=== PATIENT | male | born 1945 | race Caucasian/White ===

== ENCOUNTER 2018-05-07 22:51 | Emergency (ER) | payer SELFPAY ==
[~2018-05-07] VITALS: Ht 177.8 cm; Wt 65.8 kg
[2018-05-07] MEDS ORDERED: LACTATED RINGERS 1,000 ML IV ONE (22:57)
[2018-05-07] MEDS ORDERED: IBUPROFEN 800 MG (MOTRIN) TAB PO ONE (23:00)
[2018-05-07] MEDS ORDERED: ACETAMINOPHEN 500 MG TAB (TYLENOL) PO PRN (23:00)
[2018-05-07 23:13] LABS: BASOPHILS % (AUTO) 0 % (0-10); EOSINOPHILS % (AUTO) 1 % (0-10); HEMATOCRIT 40 % (40-54); HEMOGLOBIN 13.7 G/DL (13.3-17.7); LYMPHOCYTES # (AUTO) 0.5 X 10^3 (1.0-4.0); LYMPHOCYTES % (AUTO) 8 % (12-44); MEAN CORPUSCULAR HEMOGLOBIN 30 PG (25-34); MEAN CORPUSCULAR HGB CONC 34 G/DL (32-36); MEAN CORPUSCULAR VOLUME 86 FL (80-99); MEAN PLATELET VOLUME 9.7 FL (7.4-10.4); MONOCYTES # (AUTO) 0.4 X 10^3 (0.0-1.0); MONOCYTES % (AUTO) 6 % (0-12); NEUTROPHILS # (AUTO) 5.4 X 10^3 (1.8-7.8); NEUTROPHILS % (AUTO) 86 % (42-75); PLATELET COUNT 185 10^3/uL (130-400); RED CELL DISTRIBUTION WIDTH 13.1 % (10.0-14.5); WHITE BLOOD COUNT 6.3 10^3/uL (4.3-11.0)
[2018-05-07 23:22] LABS: INR 1.2 (0.8-1.4); PROTHROMBIN TIME PATIENT 15.4 SEC (12.2-14.7)
--- NOTE | 2018-05-07 23:23 | ED General ---
General Stated Complaint: FEVER,CONFUSION Exam Limitations: Language Barrier, Other (PT DOES NOT SPEAK GU[place]. 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 SON ARRIVES LATER. 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 DENIES ANY URINARY DIFFICULTIES ( LATER REPORTS THAT HE HAS BEEN VOIDING VERY SMALL AMOUNTS FREQUENTLY SINCE AT LEAST FEBRUARY--IS NOT KNOWN IF HE HAS HAD GROSS HEMATURIA AT ANY TIME) PT HAS HAD NAUSEA AND SOME DRY HEAVES, BUT NO ACTUAL VOMITING--EMS GAVE ZOFRAN 4 MG PRIOR TO ARRIVAL PT HAS NOT C/O ABDOMINAL PAIN NO COUGH OR DIFFICULTY BREATHING--PER FAMILY, BUT PT NOTED TO HAVE OCCASIONAL LOOSE COUGH ON EXAM. HAS BEEN EATING AND DRINKING A LITTLE. PT HAS HAD INCREASED WEAKNESS TODAY PT IS DIABETIC --ACCUCHECK 236 BY EMS. PT HAS HAD AK IN FEBRUARY--NO TREATMENT, HIS BRAIN CANCER WAS DX AFTER HIS AK. [facility] Allergies and Home Medications Allergies Coded Allergies: No Allergy Information Available (Unverified , 05/07/18) Patient Home Medication List Home Medication List Reviewed: Yes Review of Systems Review of Systems Constitutional: fever, malaise, weakness, other (PT IS NOT TALKING. ) Respiratory: No cough, No short of breath Gastrointestinal: see HPI, nausea; No vomiting Genitourinary: see HPI Psychiatric/Neurological: See HPI Past Wmhkmog-[id number]-Svvmjf Hx Patient Social History Alcohol Use: Occasionally Uses (3-4 BEERS A FEW TIMES A WEEK, NONE SINCE 2017) Recreational Drug Use: No Smoking Status: Former Smoker (UNKNOWN AMOUNT--QUIT AGE 27) Type Used: Cigarettes Recent Foreign Travel: No Contact w/Someone Who Travel: No Past Medical History Surgeries: No Respiratory: No Cardiac: Yes (AK 02/2018--NO INTERVENTION, HE WAS DX WITH BRAIN CANCER AFTER HIS AK) Coronary Artery Disease, Heart Attack, High Cholesterol, Hypertension Neurological: Yes Brain Tumor, Headaches /Migraines Genitourinary: No Gastrointestinal: No Musculoskeletal: No Endocrine: Yes Diabetes, Insulin dep HEENT: No Cancer: Yes Brain Did You Recieve Any Treatments: No Psychosocial: No Integumentary: No Blood Disorders: No Physical Exam Vital Signs Vital Signs - First Documented 05/07/18 05/08/18 22:53 00:30 Temp 103.6 Pulse 88 Resp 19 B/P (MAP) 152/74 (100) Pulse Ox 90 O2 Delivery Nasal Cannula O2 Flow Rate 2.00 Capillary Refill : Height, Weight, BMI Height: '" Weight: lbs. oz. kg; BMI Method: General Appearance: No Apparent Distress, Other (LETHARGIC, NOT TALKING OR FOLLOWING COMMANDS; PT IS MORE ALERT WHEN FAMILY IN ROOM, AND DOES COMMUNICATE WITH THEM WITH NODDING OR SHAKING HEAD. PT REQUIRES FULL ASSIST ) Neck: Full Range of Motion Respiratory: No Accessory Muscle Use, No Respiratory Distress, Other ( OCCASIONAL LOOSE COUGH. COARSE BREATH SOUNDS RLL) Cardiovascular: Regular Rate, Rhythm, No Edema, No Murmur, Normal Peripheral Pulses Gastrointestinal: No Pulsatile Mass, Soft, Other (ABDOMEN FIRM/ DISTENDED BLADDER WITH TENDERNESS. BLADDER APPEARS TO BE ABOVE LEVEL OF UMBILICUS ) Back: No CVA Tenderness Neurologic/Psychiatric: Other (LETHARGIC, NOT TALKING OR FOLLOWING COMMANDS) Skin: Warm/Dry Focused Exam Lactate Level 05/07/18 23:00: Lactic Acid Level 1.90 Lactic Acid Level Progress/Results/Core Measures Suspected Sepsis SIRS Temperature: Pulse: Respiratory Rate: Laboratory Tests 05/07/18 23:00: White Blood Count 6.3 Blood Pressure / Mean: 05/07/18 23:00: Lactic Acid Level 1.90 Laboratory Tests 05/07/18 23:00: Creatinine 1.54H, INR Comment 1.2, Platelet Count 185, Total Bilirubin 0.6 Results/Orders Lab Results Laboratory Tests Test 05/07/18 23:00 05/08/18 00:20 Range/Units White Blood Count 6.3 4.3-11.0 10^3/uL Red Blood Count 4.64 4.35-5.85 10^6/uL Hemoglobin 13.7 13.3-17.7 G/DL Hematocrit 40 40-54 % Mean Corpuscular Volume 86 80-99 FL Mean Corpuscular Hemoglobin 30 25-34 PG Mean Corpuscular Hemoglobin Concent 34 32-36 G/DL Red Cell Distribution Width 13.1 10.0-14.5 % Platelet Count 185 130-400 10^3/uL Mean Platelet Volume 9.7 7.4-10.4 FL Neutrophils (%) (Auto) 86 H 42-75 % Lymphocytes (%) (Auto) 8 L 12-44 % Monocytes (%) (Auto) 6 0-12 % Eosinophils (%) (Auto) 1 0-10 % Basophils (%) (Auto) 0 0-10 % Neutrophils # (Auto) 5.4 1.8-7.8 X 10^3 Lymphocytes # (Auto) 0.5 L 1.0-4.0 X 10^3 Monocytes # (Auto) 0.4 0.0-1.0 X 10^3 Eosinophils # (Auto) 0.0 0.0-0.3 10^3/uL Basophils # (Auto) 0.0 0.0-0.1 10^3/uL Neutrophils % (Manual) 77 % Lymphocytes % (Manual) 11 % Monocytes % (Manual) 4 % Eosinophils % (Manual) 0 % Basophils % (Manual) 0 % Band Neutrophils 6 % Reactive Lymphocytes 2 % Blood Morphology Comment NORMAL Prothrombin Time 15.4 H 12.2-14.7 SEC INR Comment 1.2 0.8-1.4 Activated Partial Thromboplast Time 36 H 24-35 SEC Sodium Level 135 135-145 MMOL/L Potassium Level 3.6 3.6-5.0 MMOL/L Chloride Level 97 L 98-107 MMOL/L Carbon Dioxide Level 27 21-32 MMOL/L Anion Gap 11 5-14 MMOL/L Blood Urea Nitrogen 30 H 7-18 MG/DL Creatinine 1.54 H 0.60-1.30 MG/DL Estimat Glomerular Filtration Rate 45 BUN/Creatinine Ratio 19 Glucose Level 181 H 70-105 MG/DL Lactic Acid Level 1.90 0.50-2.00 MMOL/L Calcium Level 8.9 8.5-10.1 MG/DL Corrected Calcium 9.4 8.5-10.1 MG/DL Magnesium Level 1.4 L 1.8-2.4 MG/DL Total Bilirubin 0.6 0.1-1.0 MG/DL Aspartate Amino Transf (AST/SGOT) 209 H 5-34 U/L Alanine Aminotransferase (ALT/SGPT) 139 H 0-55 U/L Alkaline Phosphatase 139 H 40-136 U/L Total Protein 6.4 6.4-8.2 GM/DL Albumin 3.4 3.2-4.5 GM/DL Amylase Level 195 H 25-125 U/L Lipase 58 8-78 U/L Urine Color RED H Urine Clarity VERY CLOUDY H Urine pH 7 5-9 Urine Specific [place] 1.005 L 1.016-1.022 Urine Protein 3+ H NEGATIVE Urine Glucose (UA) 3+ H NEGATIVE Urine Ketones 1+ H NEGATIVE Urine Nitrite POSITIVE H NEGATIVE Urine Bilirubin NEGATIVE NEGATIVE Urine Urobilinogen 1 NORMAL MG/DL Urine Leukocyte Esterase 2+ H NEGATIVE Urine RBC (Auto) 5+ H NEGATIVE Urine RBC TNTC H /HPF Urine WBC RARE /HPF Urine Squamous Epithelial Cells RARE /HPF Urine Crystals NONE /LPF Urine Bacteria TRACE /HPF Urine Casts NONE /LPF Urine Mucus NEGATIVE /LPF Urine Culture Indicated CULTURE PENDING Micro Results Microbiology 05/07/18 Influenza Types A,B Antigen (ELVIRA) - Final, Complete My Orders Orders - LUIZ CASTANEDA DO Cbc With Automated Diff (05/07/18 22:57) Comprehensive Metabolic Panel (05/07/18 22:57) Blood Culture (05/07/18 22:57) Sputum Culture (05/07/18 22:57) Urinalysis (05/07/18 22:57) Urine Culture (05/07/18 22:57) Protime With Inr (05/07/18 22:57) Partial Thromboplastin Time (05/07/18 22:57) Chest 1 View, Ap/Pa Only (05/07/18 22:57) Acetaminophen Tablet (Tylenol Tablet) (05/07/18 23:00) Saline Lock/Iv-Start (05/07/18 22:57) Saline Lock/Iv-Start (05/07/18 22:57) Vital Signs Adult Sepsis Patie Q15M (05/07/18 22:57) O2 (05/07/18 22:57) Remove Rings In Anticipation O (05/07/18 22:57) Lactic Acid Analyzer (05/07/18 22:57) Influenza A And B Antigens (05/07/18 22:57) Lactated Ringers (Lr 1000 Ml Iv Solution (05/07/18 22:57) Ibuprofen Tablet (Motrin Tablet) (05/07/18 23:00) Catheter(Urinary) Insert & Ass 03,15 (05/07/18 23:04) Monitor-Rhythm Ecg Trace Only (05/07/18 23:04) Amylase (05/07/18 23:04) Lipase (05/07/18 23:04) Magnesium (05/07/18 23:04) Manual Differential (05/07/18 23:00) Magnesium 1 Gm/100 Ml Ivpb (Magnesium Lu (05/07/18 23:45) Oseltamivir 75 Mg Capsule (Tamiflu 75 (05/07/18 23:45) Saline Lock/Iv-Start (05/07/18 23:44) Ns Iv 1000 Ml (Sodium Chloride 0.9%) (05/07/18 23:44) Ceftriaxone For Iv Use (Rocephin For I (05/08/18 00:00) Albuterol/Ipra Inhalation Soln (Duoneb I (05/08/18 00:30) Rt Request For Service (05/08/18 00:24) Svn Small Volume Nebulizer (05/08/18 00:24) Magnesium 1 Gm/100 Ml Ivpb (Magnesium Lu (05/07/18 23:53) Oseltamivir 75 Mg Capsule (Tamiflu 75 (05/07/18 23:53) Saline Lock/Iv-Start (05/08/18 02:03) Lactated Ringers (Lr 1000 Ml Iv Solution (05/08/18 02:03) Medications Given in ED Current Medications Medications Dose Ordered Sig/Cami Route Start Time Stop Time Status Last Admin Dose Admin Acetaminophen 1,000 mg ONCE PRN PO 05/07/18 23:00 05/07/18 23:49 DC 05/07/18 23:48 1,000 MG Albuterol/ Ipratropium 3 ml ONCE ONCE INH 05/08/18 00:30 05/08/18 00:31 DC 05/08/18 00:30 3 ML Ceftriaxone Sodium 1000 mg/ Sterile Water 10 ml @ 200 mls/hr ONCE ONCE IV 05/08/18 00:00 05/08/18 00:02 DC 05/08/18 00:55 200 MLS/HR Ibuprofen 800 mg ONCE ONCE PO 05/07/18 23:00 05/07/18 23:01 DC 05/07/18 23:48 800 MG Lactated Ringer's 1,000 ml @ 0 mls/hr Q0M ONCE IV 05/07/18 22:57 05/07/18 23:00 DC 05/07/18 23:48 999 MLS/HR Lactated Ringer's 1,000 ml @ 0 mls/hr Q0M ONCE IV 05/08/18 02:03 05/08/18 02:04 DC 05/08/18 02:10 999 MLS/HR Oseltamivir Phosphate 75 mg ONCE ONCE PO 05/07/18 23:45 05/08/18 01:39 DC 05/08/18 00:00 75 MG Sodium Chloride 1,000 ml @ 0 mls/hr Q0M ONCE IV 05/07/18 23:44 05/07/18 23:45 DC 05/08/18 00:00 999 MLS/HR Vital Signs/I&O 05/07/18 05/07/18 05/07/18 05/07/18 22:53 23:00 23:48 23:48 Temp 103.6 103.6 103.6 Pulse 88 Resp 19 B/P (MAP) 152/74 (100) Pulse Ox 90 O2 Flow Rate 2.00 05/08/18 05/08/18 05/08/18 00:20 00:30 02:27 Temp 103.6 99.0 Pulse Ox 94 O2 Delivery Nasal Cannula O2 Flow Rate 3.00 05/08/18 00:00 Intake Total 200 ml Balance 200 ml Capillary Refill : Progress Note : Progress Note O2 SATS IN UPPER 80'S --PLACED ON O2 AT 4L/NC AND O2 SATS UP TO MID 90'S BP > 100 SYSTOLIC AT TIME OF TRANSFER TEMP DOWN TO 99 AT TIME OF TRANSFER DICKSON CATHETER PLACED WITH RETURN OF BLOODY URINE WITH CLOTS AND SLOW / MINIMAL RETURN OF URINE. IRRIGATED WITH 50 ML OF SALINE AND RETURN OF LARGE CLOTS AND IMMEDIATE RETURN OF URINE--> 600 ML Diagnostic Imaging Comments CXR--? RLL INFILTRATE? PENDING RADIOLOGIST REVIEW Reviewed: Reviewed by Me Departure Communication (Admissions) THIS FACILITY IS CURRENTLY ON COMPLETE DIVERSION 25--CALLED [facility], FAMILY PREFERENCE. [facility] HOSPITALIST [id number]--SPOKE WITH DR. ZARATE, HE ADVISES THAT PT BE ADMITTED TO [facility]STEP DOWN UNIT [id number]--SPOKE WITH DR. LUONG, [facility], ACCEPTS PT FOR ADMIT. Impression Primary Impression: Influenza A Additional Impressions: BRAIN CANCER--RECENT DIAGNOSIS Sepsis Hypoxia RLL pneumonia IDDM (insulin dependent diabetes mellitus) Renal insufficiency Hematuria Bladder outlet obstruction Elevated liver enzymes Altered mental status Dehydration Hypomagnesemia UTI (urinary tract infection) Generalized weakness Disposition: 02 XFER SHT-TRM HOSP Condition: Improved Transfer Transfer Facility: [facility] Method of Transfer: EMS Departure-Patient Inst. Referrals: [facility] (PCP) Primary Care Physician JEANINE SILVER APRN (Family) Primary Care Physician LUIZ CASTANEDA DO May 07, 2018 23:23
[2018-05-07 23:28] LABS: BAND NEUTROPHILS 6 %; BASOPHILS % (MANUAL) 0 %; EOSINOPHILS % (MANUAL) 0 %; LYMPHOCYTES % (MANUAL) 11 %; MONOCYTES % (MANUAL) 4 %; NEUTROPHILS % (MANUAL) 77 %; REACTIVE LYMPHOCYTES 2 %
[2018-05-07 23:29] LABS: RBC MORPH NORMAL
[2018-05-07 23:30] LABS: ALBUMIN 3.4 GM/DL (3.2-4.5); BILIRUBIN,TOTAL 0.6 MG/DL (0.1-1.0); CALCIUM 8.9 MG/DL (8.5-10.1); CREATININE SERUM 1.54 MG/DL (0.60-1.30); MAGNESIUM 1.4 MG/DL (1.8-2.4); POTASSIUM 3.6 MMOL/L (3.6-5.0); TOTAL PROTEIN 6.4 GM/DL (6.4-8.2)
[2018-05-07] MEDS ORDERED: NS IV 1000 ML 1,000 ML IV ONE (23:44)
[2018-05-07] MEDS ORDERED: OSELTAMIVIR 75 MG (TAMIFLU) CAPSULE PO ONE (23:45)
[2018-05-07] MEDS ORDERED: MAGNESIUM 1 GM/100 ML IVPB 200 ML IV ONE (23:53)
[2018-05-07] MEDS ORDERED: OSELTAMIVIR 75 MG (TAMIFLU) CAPSULE ONE (23:53)
[2018-05-08] MEDS ORDERED: cefTRIAXone FOR IV USE 1,000 MG in WATER (STERILE) FOR INJECTION 10 ML IV ONE ×2
[2018-05-08] MEDS ORDERED: RT-ALBUTEROL/IPRATROPIUM 3 ML (DUONEB) VIAL INH ONE (00:30)
[2018-05-08] MEDS: MAGNESIUM 1 GM/100 ML IVPB 100 ML IV SCH ×2 (01:04)
[2018-05-08 01:07] LABS: BILIRUBIN,URINE NEGATIVE (NEGATIVE); CLARITY,URINE VERY CLOUDY; COLOR,URINE RED; GLUCOSE, URINE (UA) 3+ (NEGATIVE); KETONES,URINE 1+ (NEGATIVE); LEUKOCYTE ESTERASE ,URINE 2+ (NEGATIVE); NITRITE,URINE POSITIVE (NEGATIVE); PH,URINE 7 (5-9); PROTEIN,URINE 3+ (NEGATIVE); UROBILINOGEN,URINE 1 MG/DL (NORMAL)
[2018-05-08 01:14] LABS: BACTERIA,URINE TRACE /HPF; RBC,URINE TNTC /HPF; SQUAMOUS EPITHELIAL CELL,UR RARE /HPF; WBC,URINE RARE /HPF
[2018-05-08] MEDS ORDERED: LACTATED RINGERS 1,000 ML IV ONE (02:03)
[2018-05-08 03:08] VITALS: BP 114/59
--- NOTE | 2018-05-08 07:15 | Diagnostic Imaging Report ---
Examination: AP chest Indication: Influenza A. Comparison: None available. Findings: The lungs are clear and the pulmonary vasculature is normal. No pneumothorax or large pleural effusion. The heart is top normal in size, even allowing for AP technique. Mediastinal contours are normal. No acute osseous abnormality. IMPRESSION: No acute chest disease. Heart is top normal in size. Dictated by: Dictated on workstation # [id number]
== END 2018-05-08 03:08 | disposition short-term general hospital (02) ==
LOC: EDUNIT# 22:51 → ER 22:52
DX: J10.1 Influenza due to other identified influenza virus with other respiratory manifestations (principal); A41.9 Sepsis, unspecified organism; C71.9 Malignant neoplasm of brain, unspecified; J18.1 Lobar pneumonia, unspecified organism; E11.9 Type 2 diabetes mellitus without complications; N28.9 Disorder of kidney and ureter, unspecified; N32.0 Bladder-neck obstruction; R94.5 Abnormal results of liver function studies; R41.82 Altered mental status, unspecified; E86.0 Dehydration; E83.42 Hypomagnesemia; N39.0 Urinary tract infection, site not specified; R53.1 Weakness; I25.2 Old myocardial infarction; I25.10 Atherosclerotic heart disease of native coronary artery without angina pectoris; E78.00 Pure hypercholesterolemia, unspecified; I10 Essential (primary) hypertension; G43.909 Migraine, unspecified, not intractable, without status migrainosus; Z87.891 Personal history of nicotine dependence
CPT/HCPCS: 36415; 51702; 71045; 80053; 81000; 82150; 83605; 83690; 83735; 85007; 85027; 85610; 85730; 87040; 87088; 87804; 93041; 94640; 99291

== ENCOUNTER → 2018-05-07 | Outpatient (CLI) | payer OTHER ==
[~2018-05-07] MED LIST: IOHEXOL 350 MG/ML 100 ML (OMNIPAQUE 350) VIAL IV ONE; NS 100 ML (IVPB) BAG IV ONE; RECEIVED CONTRAST 20 ML VIAL IV SCH
--- NOTE | 2018-05-07 13:02 | Diagnostic Imaging Report ---
PROCEDURE: CT head with and without contrast. TECHNIQUE: Multiple contiguous axial images were obtained through the brain before and after the administration of intravenous contrast. INDICATION: Headache and blurred vision. COMPARISON: No prior studies are available for comparison. FINDINGS: There is a large mixed density masslike region along the midline frontal lobes measuring approximately 5.1 x 4.7 cm. This does appear to cross the midline. Precontrast images demonstrate peripheral hyperdensity within the mass with central low-density consistent with necrosis. There is a second masslike region involving the left temporal lobe measuring approximately 6.2 cm AP x 3.2 cm transverse. This demonstrates central low-density consistent with necrosis with some peripheral enhancement. A moderate amount of surrounding hypo-density is seen consistent with vasogenic edema. This does produce mass effect on the left lateral ventricle with some slight midline shift left to right. There is some sulcal effacement in the left cerebral hemisphere. Small area of low density in the right shen radiata is noted consistent with an old infarct. No definite acute hemorrhage is seen. IMPRESSION: Irregular mixed density mass involving bilateral frontal lobes and left temporal lobe with a heterogeneous enhancement and central necrosis. This does cross the midline to the right frontal lobe. Features are highly suggestive of a primary brain neoplasm such as glioblastoma multiforme. Further evaluation with MRI of the brain would be recommended for further characterization. Dictated by: Dictated on workstation # [id number]
== END ==
LOC: RAD 10:26
PROVIDERS: ATTEND Nurse Practitioner Primary Care
DX: G93.89 Other specified disorders of brain (principal); R51 Headache; H53.8 Other visual disturbances
CPT/HCPCS: 70470